=== PATIENT | female | born 1995 | race Hispanic/Latino ===

== ENCOUNTER 2025-08-02 20:31 | Emergency (ER) | payer SELFPAY ==
[~2025-08-02] VITALS: Ht 157.5 cm; Wt 74.4 kg
[2025-08-02 20:33] VITALS: BP 136/81; PULSE 114; RESP 20; TEMP 99.2
[2025-08-02] MEDS ORDERED: LACTATED RINGERS 1000ML IV STA (20:49)
--- NOTE | 2025-08-02 20:53 | ERN ---
General Chief Complaint: Multiple Complaints Stated Complaint: BURNING SENSATION L CHEST, SOB, FATIGUE Time Seen by MD: 20:34 Source: patient History of Present Illness Initial Comments 29-year-old female healthy comes in with a burning sensation to her left chest as well as shortness of breath and fatigue. The symptoms started about an hour ago. A are associated with mild temperature elevation to 98.8. This is the 1st time she has had them. Nothing she does makes them better or worse. She does wonder if it is anxiety or dehydration. Does have a history of GERD and this feels different from that. Past Medical History Past Medical History: No Pertinent History, GERD Past Surgical History: None Female( History) LMP: Jul 20, 2025 Constitutional: (-) chills, (-) diaphoresis, (-) fever, (-) malaise, (-) weakness, (-) other documentation EENTM: (-) eye pain, (-) blurred vision, (-) tearing, (-) double vision, (-) ear pain, (-) ear discharge, (-) nose pain, (-) nose congestion, (-) throat pa in, (-) Throat swelling, (-) mouth pain, (-) tooth pain, (-) mouth swelling, (-) other documentation Respiratory: (-) cough, (-) orthopnea, (-) short of breath, (-) stridor, (-) wheezing, (-) other documentation Cardiovascular: (-) chest pain, (-) edema, (-) palpitations, (-) syncope, (-) dyspnea on exertion, (-) other documentation Gastrointestinal/Abdominal: (-) nausea, (-) vomiting, (-) diarrhea, (-) abdominal pain, (-) abdominal distention, (-) constipation, (-) rectal bleeding, (-) dark stool/melena, (-) other documentation Genitourinary: (-) vaginal discharge, (-) vaginal bleeding, (-) dysuria, (-) frequency, (-) hematuria, (-) pain, (-) other documentation Musculoskeletal: (-) Neck pain, (-) back pain, (-) Flank Pain, (-) joint pain, (-) joint swelling, (-) muscle pain, (-) muscle stiffness, (-) gout, (-) other documentation Physical Exam General Appearance: (+) no apparent distress Orientation: (+) alert, (+) oriented x 3 Head/Face Trauma: No Eye: bilateral eye normal inspection, bilateral eye PERRL, bilateral eye EOMI Ear, Nose, Throat: (+) hearing grossly normal, (+) normal ENT inspection, (+) normal pharynx Neck: (+) normal inspection, (+) supple, (+) full range of motion Respiratory: (+) chest non-tender, (+) lungs clear, (+) well ventilated Heart: (+) regular, (+) no gallop Vascular: (+) no edema, (+) normal peripheral pulse Gastrointestinal: (+) soft, (+) non-tender, (+) bowel sound present MDM MDM: Differential diagnosis: Anxiety, dehydration, shingles, muscle pain, upper respiratory tract infection Rationale: Tests considered and ordered secondary to shared decision making include: Previous outside records reviewed: Old ER visits. Risk of complication and/or morbidity or mortality of patient management: None Medications-Per medication reconciliation Need for hospitalization: Patient does meet criteria for hospitalization. Need for emergency major/minor surgery: No There are no social concerns with this patient. Prescription drug management Prescriptions will include symptomatic care Patient's prior external medical records from other ER visits were reviewed by me as indicated. Prior testing and results from previous visits were reviewed. Prior tests were taken into account with medical decision making and resource utilization, independent historian/historians were used to obtain complete medical history. I independently interpreted the test that were performed, results were reviewed by me and considered findings on radiology if ordered. Before labs could be drawn or x-rays taken patient decided to leave as she felt she could not afford the cost associated with the emergency room visit. ED Course Orders Procedure Category Date Status Time Basic Metabolic Panel LAB 08/02/25 Logged 20:49 Cbc With Differential LAB 08/02/25 Logged 20:49 ,Urine Test LAB 08/02/25 Logged 20:49 Urinalysis Profile LAB 08/02/25 Logged 20:49 Chest 1vw RAD 08/02/25 Logged 20:49 Lactated Ringers PHA 08/02/25 Complete 1000ml (Lactated 20:49 Lidocaine Hcl 2% PHA 08/02/25 Complete Viscous (Lidocaine Hcl 21:00 Mag/Alum/Simeth 30ml PHA 08/02/25 Complete (Maalox Plus 30ml) 21:00 Dicyclomine Hcl PHA 08/02/25 Complete (Bentyl 10mg/5ml 21:00 Current Medications Medications (Trade) Dose Ordered Sig/Fe Route PRN Reason Start Time Stop Time Status Last Admin Dose Admin Al Hydroxide/Mg Hydroxide (MAALox PLUS 30ML) 30 ml ONCE ONCE PO 08/02/25 21:00 08/02/25 21:14 DC Dicyclomine HCl (Bentyl 10mg/5ml Syrup) 10 mg ONCE ONCE PO 08/02/25 21:00 08/02/25 21:14 DC Lactated Ringer's (Lactated Ringers 1000ml) 1,000 ml BOLUS STAT IV 08/02/25 20:49 08/02/25 21:22 DC Lidocaine HCl (Lidocaine HCl 2% Viscous) 10 ml ONCE ONCE PO 08/02/25 21:00 08/02/25 21:14 DC Vital Signs Date Time Temp Pulse Resp B/P (MAP) Pulse Ox O2 Delivery O2 Flow Rate FiO2 08/02/25 20:33 99.1 114 20 136/81 99 Room Air 0 DX & DISP Disposition: Discharge Departure Impression: Primary Impression: Dehydration Condition: Stable SANDRA THORNE MD Aug 02, 2025 20:53
[2025-08-02] MEDS ORDERED: LIDOCAINE HCL 2% VISCOUS 15 ML UDCUP PO ONE (21:00)
[2025-08-02] MEDS ORDERED: MAG/ALUM/SIMETH 30 ML UDCUP PO ONE (21:00)
[2025-08-02] MEDS ORDERED: DICYCLOMINE HCL 10 MG/5 ML ML PO ONE (21:00)
--- NOTE | 2025-08-02 21:13 | NUR ---
PT WAS IN THE LOBBY, ALREADY TRIAGED, TOLD REGISTRATION SHE IS TIRED OF WAITING AND DECIDED TO LEAVE WITHOUT SEEING PROVIDER.
== END 2025-08-02 21:13 | disposition left against medical advice (07) ==
LOC: EDH 20:31
DX: E86.0 Dehydration (principal)
CPT/HCPCS: 99282